=== PATIENT | male | born 1995 | race Caucasian/White ===

== ENCOUNTER 2018-12-27 20:27 | Emergency (ER) | payer BC ==
[2018-12-27] MEDS ORDERED: HYDROmorphone 0.5 MG/0.5 ML Syringe IM ONE (21:31)
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
--- NOTE | 2018-12-31 10:12 | CR ---
Left knee: Four views of the left knee were obtained. Comparison: No previous knee study. Medial and lateral joint compartments are maintained in height. No joint effusion is seen. No fracture or other bony abnormality is seen. Impression: 1. Nothing acute is seen on left knee exam. Diagnostic code #1
== END 2018-12-27 22:35 | disposition home or self-care (01) ==
LOC: JD.ED 20:27
DX: S80.02XA Contusion of left knee, initial encounter (principal); V29.9XXA Motorcycle rider (driver) (passenger) injured in unspecified traffic accident, initial encounter
CPT/HCPCS: 73564-LT; 99283-25

== ENCOUNTER 2024-06-18 04:06 | Emergency (ER) | payer SELFPAY ==
[2024-06-18] MEDS ORDERED: Acetaminophen 325 MG/10.15 ML PO ONE (04:45)
[2024-06-18] MEDS: Acetaminophen/oxyCODONE 325-5 MG Tab PO ONE (04:56)
[2024-06-18] MEDS: Acetaminophen 325 MG Tab PO ONE (04:57)
[2024-06-18] MEDS: Ketorolac 60 MG/2 ML SDV IM ONE (06:42)
== END 2024-06-18 09:14 | disposition home or self-care (01) ==
LOC: JD.ED 04:06
DX: S92.311A Displaced fracture of first metatarsal bone, right foot, initial encounter for closed fracture (principal); W20.8XXA Other cause of strike by thrown, projected or falling object, initial encounter; Y93.89 Activity, other specified; Y99.0 Civilian activity done for income or pay
CPT/HCPCS: 73630; 73700; 96372; 99284; A9270; J1885; 99283